=== PATIENT | female | born 1970 | race Caucasian/White ===

== ENCOUNTER 2020-07-30 21:31 | Emergency (ER) | payer OTHER, SELFPAY ==
[~2020-07-30] VITALS: Ht 162.6 cm; Wt 58.3 kg
--- NOTE | 2020-07-30 22:04 | NUR ---
bedside report from oleg estrada. pt care transferred at this time. pt resting on gurney, came in due to reproducible right sided chest pain, NAD, waiting for ERP orders. WCTM.
[2020-07-30 22:36] LABS: BASOPHILS # (AUTO) 0.01 x10^3/uL (0-0.1); BASOPHILS % (AUTO) 0 % (0-1); EOSINOPHILS # (AUTO) 0.16 x10^3/uL (0-0.4); EOSINOPHILS % (AUTO) 1 % (1-7); LYMPHOCYTES # (AUTO) 1.36 x10^3/uL (1-3.4); LYMPHOCYTES % (AUTO) 12 % (22-44); MD NO; MEAN CORPUSCULAR HEMOGLOBIN 31.4 pg (27.0-34.8); MEAN CORPUSCULAR HGB CONC 33.1 g/dL (32.4-35.8); MEAN CORPUSCULAR VOLUME 95.1 fL (80-100); MEAN PLATELET VOLUME 9.1 fL (7.4-10.4); MONOCYTES # (AUTO) 0.66 x10^3/uL (0.2-0.8); MONOCYTES % (AUTO) 6 % (2-9); NEUTROPHILS # (AUTO) 9.58 x10^3/uL (1.8-6.8); NEUTROPHILS % (AUTO) 81 % (42-75); PLATELET COUNT 266 x10^3/uL (130-400); RED BLOOD COUNT 4.62 x10^6/uL (3.82-5.3)
--- NOTE | 2020-07-30 22:53 | NUR ---
pt nad, no change in condition, given warm blankets for comfort, denies additional needs. wctm. waiting for test results.
[2020-07-30 23:17] LABS: ALBUMIN 3.9 g/dL (3.4-5.0); CALCIUM 8.3 mg/dL (8.5-10.1); CREATININE 0.68 mg/dL (0.55-1.02)
[2020-07-30 23:35] LABS: ALANINE AMINOTRANSFERASE 73 U/L (12-78); ALKALINE PHOSPHATASE 64 U/L (45-117); CHLORIDE 106 mmol/L (98-107); TOTAL PROTEIN 7.8 g/dL (6.4-8.2)
[2020-07-30 23:36] LABS: ANION GAP 7 mmol/L (5-15)
[2020-07-30 23:50] LABS: BILIRUBIN,TOTAL 0.5 mg/dL (0.2-1.0)
--- NOTE | 2020-07-31 00:14 | NUR ---
PT RESTING ON GURNEY, APPEARS COMFORTABLE, NAD, RESP HEARD, EQUAL CHEST EXPANSION, WCTM. PT UP FOR RECHECK
[2020-07-31 01:01] VITALS: BP 96/70
--- NOTE | 2020-07-31 01:02 | NUR ---
Patient given discharge instructions and they have confirmed that they understand the instructions. Patient ambulatory with steady gait. ALL QUESTIONS ANSWERED APPROPRIATELY, NAD, VSS, NO BELONGINGS LEFT IN ROOM AFTER DC.
== END 2020-07-31 01:29 | disposition home or self-care (01) ==
LOC: ED 07-31 01:16
DX: J06.9 Acute upper respiratory infection, unspecified (principal); Z20.828 Contact with and (suspected) exposure to other viral communicable diseases; R50.9 Fever, unspecified; R07.89 Other chest pain; R06.02 Shortness of breath
CPT/HCPCS: 36415; 71045; 80053; 84703; 85025; 87635; 93005; 99285